=== PATIENT | female | born 1980 | race Caucasian/White ===

== ENCOUNTER 2016-08-14 18:41 | Emergency (ER) | payer MEDICAID, OTHER ==
[2016-08-14 19:15] VITALS: RESP 16; TEMP 98.1; O2SAT 98
[2016-08-14] MEDS ORDERED: ALUMINUM/MAGNESIUM 30 ML SUS PO ONE (19:16)
[2016-08-14] MEDS ORDERED: HALOPERIDOL LACTATE 5 MG/ML SOL IM ONE (19:16)
[2016-08-14] MEDS ORDERED: HALOPERIDOL LACTATE 5 MG/ML SOL ONE (19:17)
[2016-08-14] MEDS ORDERED: ALUMINUM/MAGNESIUM 30 ML SUS ONE (19:17)
[2016-08-14] MEDS ORDERED: ONDANSETRON 4 MG ODT BU ONE (20:01)
[2016-08-14] MEDS ORDERED: ONDANSETRON 4 MG ODT ONE (20:02)
[2016-08-14 20:14] VITALS: BP 94/72; PULSE 108
== END 2016-08-14 20:02 | disposition home or self-care (01) | DRG 392 ==
LOC: ED 18:41
DX: K30 Functional dyspepsia (principal); R06.6 Hiccough
CPT/HCPCS: 96372; 99283; J1630

== ENCOUNTER 2017-06-12 14:20 | Emergency (ER) | payer MEDICAID, OTHER ==
[2017-06-12 14:38] VITALS: TEMP 98.8
[2017-06-12] MEDS ORDERED: ASPIRIN 81 MG CHEWABLE CTB PO ONE (14:41)
[2017-06-12] MEDS ORDERED: ASPIRIN 81 MG CHEWABLE CTB ONE (14:42)
[2017-06-12] MEDS ORDERED: NITROGLYCERIN 0.4 MG TAB SL ONE (14:42)
[2017-06-12] MEDS: NITROGLYCERIN 0.4 MG TAB SL PRN ×2 (14:44→14:51)
[2017-06-12] MEDS: METOPROLOL TARTRATE 5 MG/5 ML SOL IV SCH ×2 (14:45→14:50)
[2017-06-12] MEDS ORDERED: METOPROLOL TARTRATE 5 MG/5 ML SOL IV ONE ×2 (14:50→15:06)
[2017-06-12 14:53] LABS: CALCIUM 9.5 mg/dl (8.5-10.1); GLOM FILT RATE 56 mL/min (>60); SODIUM 139 mMol/L (136-145)
[2017-06-12 15:10] LABS: BASOPHILS % (AUTO) 1 % (0-3); EOSINOPHILS % (AUTO) 2 % (0-9); HEMATOCRIT 36 % (35-47); MEAN CORPUSCULAR HGB CONC 36.3 gm/dl (32.0-36.0); MONOCYTES % (AUTO) 9.3 % (0-12)
[2017-06-12 15:12] LABS: MEAN CORPUSCULAR VOLUME 81 fL (81-99)
[2017-06-12 16:09] VITALS: PULSE 81
[2017-06-12 16:10] VITALS: BP 108/75; RESP 19; O2SAT 96
== END 2017-06-12 15:45 | disposition home or self-care (01) ==
LOC: ED 14:20
DX: R07.89 Other chest pain (principal)
CPT/HCPCS: 80048; 84484; 85025; 93005; 99284